=== PATIENT | male | born 1995 | race Caucasian/White ===

== ENCOUNTER 2021-01-31 08:35 | Emergency (ER) | payer OTHER ==
[~2021-01-31] VITALS: Ht 175.3 cm; Wt 77.1 kg
[2021-01-31 08:48] VITALS: BP_SYST 155
--- NOTE | 2021-01-31 08:50 | NUR ---
Patient triaged and placed in bed 5. VSS and patient appears in no acute distress at this time. MD notified of need for MSE.
--- NOTE | 2021-01-31 08:55 | NUR ---
VALORIE Leiva at bedside examining patient.
--- NOTE | 2021-01-31 08:56 | NUR ---
RESTLESS, ANXIOUS AND ADMITS TO HEAVY DRINKING, LAST BEER WAS LAST NIGHT
[2021-01-31] MEDS ORDERED: NACL 0.9% 2,000 ML IV ONE (09:15)
[2021-01-31] MEDS ORDERED: LORazepam 2 MG/ML VIAL IVP ONE (09:15)
--- NOTE | 2021-01-31 09:19 | NUR ---
REPORTED HE WAS LEAVING, OFF UNIT REFUSING TO SIGN AMA FORM.
== END 2021-01-31 09:25 | disposition left against medical advice (07) ==
LOC: SED 08:35
DX: F10.129 Alcohol abuse with intoxication, unspecified (principal); Z53.21 Procedure and treatment not carried out due to patient leaving prior to being seen by health care provider

== ENCOUNTER 2021-10-11 22:45 | Inpatient (IN) | payer MEDICAID ==
[~2021-10-11] VITALS: Ht 177.8 cm; Wt 63.5 kg
[2021-10-11 22:50] VITALS: BP_SYST 93
--- NOTE | 2021-10-11 22:50 | NUR ---
Placed in room 3 . Placed on threat monitoring analyst, blood pressure machine and pulse oximeter. To gown for exam. Side rails up. Report given to Maurice KENT.
--- NOTE | 2021-10-11 22:51 | NUR ---
ER at bedside examining patient.
[2021-10-11] MEDS ORDERED: NALOXONE HCL 0.4 MG/ML AMP (NARCAN) ONE (23:12)
--- NOTE | 2021-10-11 23:14 | NUR ---
EKG given to Dr. Lucia for interpretation.
[2021-10-11] MEDS ORDERED: NALOXONE HCL 0.4 MG/ML AMP (NARCAN) IVP ONE (23:15)
[2021-10-11] MEDS ORDERED: NACL 0.9% 1,000 ML IV ONE (23:15)
[2021-10-11] MEDS ORDERED: NALOXONE HCL 2 MG/2 ML SYR IVP ONE (23:45)
[2021-10-11] MEDS ORDERED: DEXTROSE 50% JECT 50 ML DISP.SYRIN ONE (23:52)
[2021-10-12] MEDS ORDERED: DEXTROSE 50% JECT 50 ML DISP.SYRIN IVP ONE
[2021-10-12 00:17] LABS: ALANINE AMINOTRANSFERASE 0 U/L (12-78); ANION GAP 20 (5-15); ASPARTATE AMINOTRANSFERASE 95 U/L (10-37); CALCIUM 7.7 mg/dL (8.4-11.0); CHLORIDE 104 mmol/L (98-107); CREATININE 0.87 mg/dL (0.55-1.30); GLUCOSE 65 mg/dL (70-99); POTASSIUM 3.5 mmol/L (3.5-5.1); SODIUM SERUM 141 mmol/L (136-145); TOTAL BILIRUBIN 0.4 mg/dL (0.0-1.0); UREA NITROGEN, BLOOD 23 mg/dL (8-21)
[2021-10-12 00:20] LABS: ALCOHOL, BLOOD < 3 mg/dL (<10); GFR AFRICAN AMERICAN 136 mL/min (>90)
[2021-10-12 00:21] LABS: ACETAMINOPHEN < 1 ug/mL (1-30); ALBUMIN 4.1 g/dL (3.4-4.8)
--- NOTE | 2021-10-12 01:28 | NUR ---
COVID sample sent to lab at 01:26.
--- NOTE | 2021-10-12 02:00 | NUR ---
Pt admits to using ativan. says he's only had one pill.
--- NOTE | 2021-10-12 02:10 | NUR ---
Called Poison Control at [phone] and spoke with Matheus . Per recommendations:watch out for ARTIFICIAL TEETH INSPECTOR/Resp depression worsening, 1 liter NS bolus if desired, Creatinine Kinase in addition to the other labs the ER md may deem fit. . Dr. Lucia notified. Will continue to monitor patient.
[2021-10-12] MEDS ORDERED: PIPERACILLIN/TAZO 3.375 GM in NS 50 ML IV ONE (02:30)
[2021-10-12] MEDS ORDERED: NACL 0.9% 1,000 ML IV ONE (02:30)
[2021-10-12 02:33] LABS: MONOCYTES # (AUTO) 0.2 K/uL (0.0-1.0)
[2021-10-12 02:44] LABS: BASOPHILS % (AUTO) 0.3 % (0.0-2.0); EOSINOPHILS % (AUTO) 0.1 % (0.0-4.0); HEMATOCRIT 44.9 % (36-54); HEMOGLOBIN 14.7 g/dL (14.0-18.0); LYMPHOCYTES % (AUTO) 11.5 % (20.5-51.5); MEAN CORPUSCULAR HEMOGLOBIN 30 pg (27-31); MEAN CORPUSCULAR HGB CONC 33 % (32-36); MEAN CORPUSCULAR VOLUME 92 fL (79.0-98.0); MONOCYTES % (AUTO) 2.7 % (1.7-9.3); NEUTROPHILS # (AUTO) 7.5 K/uL (1.8-7.7); NEUTROPHILS % (AUTO) 85.4 % (40.0-70.0); PLATELET COUNT (AUTO) 133 K/uL (130-430); RED CELL DISTRIBUTION WIDTH 18.5 % (9.0-15.0); WHITE BLOOD COUNT (AUTO) 8.8 K/uL (4.8-10.8)
[2021-10-12] MEDS ORDERED: PIPERACILLIN/TAZOBACTAM 3.375 GM/VIAL (ZOSYN) IV ONE (03:17)
--- NOTE | 2021-10-12 04:26 | NUR ---
Radha MANZANARES for admission Paged Dr. January Morocho, s/w Gene
[2021-10-12] MEDS ORDERED: D5/0.45 NS 1,000 ML IV SCH (06:45)
--- NOTE | 2021-10-12 06:55 | NUR ---
Admit bed requested Patient will be admitted to care of . Admitted to MED SURG unit. Diagnosis ALTERED MENTAL STATUS Inpatient (Yes or No) YES Observation (Yes or No) NO Orientation concerns or request close to nursing station (Yes or No) YES Covid Status NEGATIVE On vent or bipap NO Isolation requirements NO Needs a sitter NO From Home (Yes or if No enter name of facility) YES Requires Dialysis (Yes or No) NO Med Rec Completed (Yes of No) PENDING
--- NOTE | 2021-10-12 09:20 | NUR ---
Patient will be admitted to care of Dr. Morocho . Admitted to med/surg unit. Will go to room 132-A . Belongings list completed. Complete and up to date summary report printed. SBAR report given at bedside to admitting nurse with opportunity for questions. Med/surg Charge nurse present and interactive during bedside report.
--- NOTE | 2021-10-12 09:35 | NUR ---
Admission Note Received patient from ER with diagnosis of Altered Mental Status. Initial Plan of Care discussed-patient verbalized understanding,slowly. [place] to room, call light, pain management and safety.
[2021-10-12 09:46] VITALS: BP_SYST 107
[2021-10-12] MEDS ORDERED: SERT100T PO (10:24)
[2021-10-12] MEDS ORDERED: BUPR1FIL7 SL (10:24)
[2021-10-12] MEDS ORDERED: QUET300T2 PO (10:24)
[2021-10-12 10:34] VITALS: BP_SYST 107
[2021-10-12 12:01] VITALS: BP_SYST 103
[2021-10-12] MEDS ORDERED: ACETAMINOPHEN 325 MG TABLET PO PRN (12:45)
[2021-10-12] MEDS ORDERED: LORazepam 2 MG/ML VIAL IVP PRN (12:45)
[2021-10-12] MEDS ORDERED: ONDANSETRON HCL 4 MG/2 ML VIAL IVP PRN (12:45)
--- NOTE | 2021-10-12 15:43 | NUR ---
CONSULTATION PAGED REASON FOR CONSULTATION:AMS WAS CONSULT CALLED?Y PERSON WHO WAS NOTIFIED:TEXT MESSAGED LUCIANA GAY CONSULTING PHYSICIAN:LUIS GAY TECH ED/WOODSHOP TEACHER SPECIALTY:NEURO TECH ED/WOODSHOP TEACHER PHONE NUMBER:[phone] REQUESTING PHYSICIAN:LEV LOUIS
--- NOTE | 2021-10-12 15:47 | NUR ---
CONSULTATION PAGED REASON FOR CONSULTATION:LACTIC ACIDOSIS/POSSIBLE SEPSIS WAS CONSULT CALLED?Y PERSON WHO WAS NOTIFIED:[place] CONSULTING PHYSICIAN:UMA LUNA UNIFORM ROOM ATTENDANT SPECIALTY:ID UNIFORM ROOM ATTENDANT PHONE NUMBER:[phone] REQUESTING PHYSICIAN:LEV COREA
[2021-10-12 16:00] VITALS: BP_SYST 106
--- NOTE | 2021-10-12 18:15 | NUR ---
AMA: Patient does not wish to proceed with medical care recommended by . Patient given information related to possible complications, up to and including , which could occur as a result of leaving hospital at this time. Patient verbalizes understanding of risks involved leaving against medical advice. Patient has signed AMA form.
--- NOTE | 2021-10-12 19:00 | NUR ---
PAGED: SPOKE WITH DR Ez TEJADA AND INFORMED HIM, PT AND LEFT AGAINST MEDICAL ADVISE AND SIGNED THE FORM.
[2021-10-12] MEDS ORDERED: BUPRENORPHINE SL SCH (21:00)
[2021-10-12] MEDS ORDERED: QUEtiapine FUMARATE 100 MG TABLET PO SCH (21:00)
[2021-10-12] MEDS ORDERED: NALOXONE SL SCH (21:00)
[2021-10-12] MEDS ORDERED: [UNRECOGNIZED DRUG - OTHER] SL SCH (21:00)
[2021-10-13] MEDS ORDERED: SERTRALINE HCL 50 MG TABLET PO SCH (09:00)
== END 2021-10-12 18:15 | disposition left against medical advice (07) | DRG 816 ==
LOC: EDBD 22:45 → SED 22:45 → MERGE 10-12 06:44 → SMU 10-12 06:44
PROVIDERS: ADMIT Preventive Medicine Preventive Medicine/Occupational Environmental Medicine; ATTEND Preventive Medicine Preventive Medicine/Occupational Environmental Medicine
DX: T51.91XA Toxic effect of unspecified alcohol, accidental (unintentional), initial encounter (principal); G92.9 Unspecified toxic encephalopathy; E87.2 Acidosis; R56.9 Unspecified convulsions; F32.A Depression, unspecified; E16.2 Hypoglycemia, unspecified; Z20.822 Contact with and (suspected) exposure to COVID-19; E83.52 Hypercalcemia; Z88.8 Allergy status to other drugs, medicaments and biological substances; Z79.899 Other long term (current) drug therapy; Y92.89 Other specified places as the place of occurrence of the external cause
CPT/HCPCS: 36415; 70450-TC; 72125-TC; 76376; 80048; 80053; 82550; 82962; 83605; 85025; 87040; 93005; 96361; 96365; 96375; 99285; G0480; G0481; G0482; J2060; J2310; J2543; J7030

== ENCOUNTER 2021-11-17 22:38 | Emergency (ER) | payer MEDICAID, OTHER ==
[~2021-11-17] VITALS: Ht 177.8 cm; Wt 68.0 kg
[~2021-11-17 22:38] MED LIST: BUPR1FIL7 SL; QUET300T2 PO; SERT100T PO
[2021-11-17 22:54] VITALS: BP_SYST 107
[2021-11-18 00:45] VITALS: BP_SYST 102
== END 2021-11-18 00:45 ==
LOC: SED 22:38
DX: F10.129 Alcohol abuse with intoxication, unspecified (principal); Z79.899 Other long term (current) drug therapy; Y90.9 Presence of alcohol in blood, level not specified
CPT/HCPCS: 99283